=== PATIENT | male | born 1980 | race Caucasian/White ===

== ENCOUNTER 2018-05-22 11:33 | Emergency (ER) | payer BC, SELFPAY ==
[2018-05-22 11:50] VITALS: BP 144/80; PULSE 99; TEMP 39.3; O2SAT 97; BMI 37.5
[2018-05-22 12:20] LABS: Influenza A and B by PCR Rapid Negative (Negative)
--- NOTE | 2018-05-22 13:03 | DI.RAD.S_ITS ---
PROCEDURE: XR CHEST 2V INDICATIONS: cough/fever TECHNIQUE: 2 views of the chest were acquired. COMPARISON: None. FINDINGS: Surgical changes and devices: None. Lungs and pleura: An incomplete inspiratory result is noted, causing a crowded appearance to the lung markings. Mild, streaky opacities are seen at the lung bases. No pneumothorax or significant pleural effusions are seen. Mediastinum: Mediastinal contours are normal. Heart size is normal. Bones and chest wall: No suspicious bony abnormalities. Soft tissues appear unremarkable. IMPRESSION: Limited study demonstrating likely atelectasis is seen at the lung bases. Differential diagnosis includes mild infiltrate. As clinically appropriate, a short-term followup chest series (with PA and lateral views) performed in deep inspiration is suggested for further evaluation. Dictated by: Alejandro Mitchell M.D. on 05/22/2018 at 12:11 Approved by: Alejandro Mitchell M.D. on 05/22/2018 at 12:12
[2018-05-22 13:34] VITALS: BP 132/81; PULSE 96; RESP 16; TEMP 38.3; O2SAT 98
[2018-05-22] MEDS: IBUPROFEN 400 MG TABLET 800 MG PO (14:04)
--- NOTE | 2018-05-22 14:09 | ED.FEVER ---
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 He has had chills and sweats. He came here from [place] to visit a friend this weekend, and is now concerned that he could be developing pneumonia. He also has a history of mild asthma/ reactive airways for which he has needed an inhaler occasionally. He states that he has mild exercise intolerance but does not feel acutely short of breath. No wheezing. He denies sinus pain, sore throat, or earache. Not having body aches. He has not traveled other than domestic we and symptoms were present before hand. No specific exposures, however he states that he has had several episodes of pneumonia in the past for 5 years, and this feels very similar. He denies any chest pain. He denies any new pain or swelling in the extremities or other new complaints on systems review. He states that typically azithromycin is not effective for him and Augmentin or Levaquin have seemed to work best for him. Related Data Home Medications Medication Instructions Recorded Confirmed loratadine 1 tab PO QPM 05/22/18 05/22/18 montelukast 10 mg PO QPM 05/22/18 05/22/18 tramadol 50 mg PO BID PRN 05/22/18 05/22/18 Previous Rx's Medication Instructions Recorded albuterol sulfate 2 inhalation INHALATION Q4H PRN 05/22/18 #8.5 gram amoxicillin-pot clavulanate 2 tab PO BID 7 Days #28 tab 05/22/18 Review of Systems <MONA Felix Last Filed: 05/22/18 21:23> Review of Systems ROS Unobtainable: All systems reviewed & are unremarkable except as noted in HPI and below PFSH <MONA Felix Last Filed: 05/22/18 21:23> Medical History No pertinent family history (Chronic) Reactive airway disease (Chronic) Pneumonia (Resolved) Surgical History No pertinent past surgical history (Chronic) Social History Smoking Status: Never smoker Social History Smoking Status: Never smoker Exam <Lorri Bowles PA-C - Last Filed: 05/22/18 21:23> Initial Vital Signs Initial Vital Signs: Vital Signs Temperature 102.7 F H 05/22/18 11:50 Pulse Rate 99 H 05/22/18 11:50 Blood Pressure 144/80 H 05/22/18 11:50 Pulse Oximetry 97 05/22/18 11:50 <Natalie Coppola DO - Last Filed: 05/23/18 12:19> Initial Vital Signs Initial Vital Signs: Vital Signs Temperature 102.7 F H 05/22/18 11:50 Pulse Rate 99 H 05/22/18 11:50 Blood Pressure 144/80 H 05/22/18 11:50 Pulse Oximetry 97 05/22/18 11:50 Course <Lorri Bowles PA-C - Last Filed: 05/22/18 21:23> Orders Ordered: Discontinued Medications Ibuprofen (Advil) 800 mg PO NOW ONE Stop: 05/22/18 13:59 Last Admin: 05/22/18 14:04 Dose: 800 mg Vital Signs - 8 hr 05/22/18 13:34 Temperature 101 F H Pulse Rate 96 H Respiratory Rate 16 Blood Pressure [Right Arm] 132/81 Pulse Oximetry 98 <Natalie Coppola DO - Last Filed: 05/23/18 12:19> Orders Ordered: Discontinued Medications Ibuprofen (Advil) 800 mg PO NOW ONE Stop: 05/22/18 13:59 Last Admin: 05/22/18 14:04 Dose: 800 mg Vital Signs - 8 hr 05/22/18 13:34 Temperature 101 F H Pulse Rate 96 H Respiratory Rate 16 Blood Pressure [Right Arm] 132/81 Pulse Oximetry 98 MDM - Fever <Lorri Bowles PA-C - Last Filed: 05/22/18 21:23> Lab Data Lab Results 05/22/18 Range/Units 11:55 Influenza A & B (PCR) Negative (Negative) Imaging Data Chest x-ray: Radiologist's impression: Chart Viewer Diagnostics DATE TYPE STATUS AUTHOR Hx 05/22/18 13:03 StephenAlejandro Jonah Dixon 37, M0 1980 REG ER, ED.LOC - Main ED: R13 170.18cm 108.862kg BMI: 37.6kg/m? Fever Search Chart NF - Not included in interaction checking No Data to Display No Data to Display Today 13:34 Jonah Dixon 37 M 1980 [place] [address] XRay Report Signed Patient: Jonah Dixon CMR#: [id number] : 1980Acct:[id number] Age/Sex: 37 / MDate of Service: 05/22/18 Loc: ED Accession Number: [id number] Procedure: XR chest 2V Ordering Provider: Lorri oBwles P.A-C PROCEDURE: XR CHEST 2V INDICATIONS: cough/fever TECHNIQUE: 2 views of the chest were acquired. COMPARISON: None. FINDINGS: Surgical changes and devices: None. Lungs and pleura: An incomplete inspiratory result is noted, causing a crowded appearance to the lung markings. Mild, streaky opacities are seen at the lung bases. No pneumothorax or significant pleural effusions are seen. Mediastinum: Mediastinal contours are normal. Heart size is normal. Bones and chest wall: No suspicious bony abnormalities. Soft tissues appear unremarkable. IMPRESSION: Limited study demonstrating likely atelectasis is seen at the lung bases. Differential diagnosis includes mild infiltrate. As clinically appropriate, a short-term followup chest series (with PA and lateral views) performed in deep inspiration is suggested for further evaluation. Dictated by: Alejandro Mitchell M.D. on 05/22/2018 at 12:11 Approved by: Alejandro Mitchell M.D. on 05/22/2018 at 12:12 <Natalie Coppola DO - Last Filed: 05/23/18 12:19> Lab Data Lab Results 05/22/18 Range/Units 11:55 Influenza A & B (PCR) Negative (Negative) Discharge Plan Departure Patient Disposition: Home Clinical Impression: Pneumonia Qualifiers: Pneumonia type: due to unspecified organism Laterality: bilateral Lung location: lower lobe of lung Qualified Code(s): J18.1 - Lobar pneumonia, unspecified organism Discharge Date/Time: 05/22/18 14:34 Interventions: ED Discharge Assessment Last Done: 05/22/18 14:33 Instructions: DI for Pneumonia -- Adult Activity Restrictions/Additional Instructions: please continue your ibuprofen/acetaminophen as well as Mucinex DM. Use the albuterol inhaler I have prescribed as often as needed. Start the high-dose Augmentin as soon as you pick it up and continue this for the next few days until you follow up with your PCP (this is higher dose than standard and probably what you have taken in the past since it has worked well for your pneumonia). Please return here right away if you have any acutely worsening symptoms prior to returning home. Prescriptions: New amoxicillin-pot clavulanate 1,000-62.5 mg tablet extended release 12 hr 2 tab PO BID 7 Days Qty: 28 RF: 0 albuterol sulfate 90 mcg/actuation HFA aerosol inhaler 2 inhalation INHALATION Q4H PRN (Reason: pneumonia) Qty: 8.5 RF: 0 No Action tramadol 50 mg tablet 50 mg PO BID PRN (Reason: pain) RF: 0 montelukast 10 mg tablet 10 mg PO QPM RF: 0 loratadine 1 tab PO QPM RF: 0 Referrals: Shimon Sanchez [Other] <Natalie Coppola DO - Last Filed: 05/23/18 12:19> Cosign ED Attending Lauren Attestation: I was immediately available in the department for consultation. Documentation has been reviewed. I agree with assessment and plan.
--- NOTE | 2018-05-22 14:12 | ED_ITS ---
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 He has had chills and sweats . He came here from [place] to visit a friend this weekend, and is now concerned that he could be developing pneumonia. He also has a history of mild asthma/ reactive airways for which he has needed an inhaler occasionally. He states that he has mild exercise intolerance but does not feel acutely short of breath. No wheezing. He denies sinus pain, sore throat, or earache. Not having body aches. He has not traveled other than domestic we and symptoms were present before hand. No specific exposures, however he states that he has had several episodes of pneumonia in the past for 5 years, and this feels very similar. He denies any chest pain. He denies any new pain or swelling in the extremities or other new complaints on systems review. He states that typically azithromycin is not effective for him and Augmentin or Levaquin have seemed to work best for him. Related Data Home Medications Medication Instructions Recorded Confirmed loratadine 1 tab PO QPM 05/22/18 05/22/18 montelukast 10 mg PO QPM 05/22/18 05/22/18 tramadol 50 mg PO BID PRN 05/22/18 05/22/18 Previous Rx's Medication Instructions Recorded albuterol sulfate 2 inhalation INHALATION Q4H PRN 05/22/18 #8.5 gram amoxicillin-pot clavulanate 2 tab PO BID 7 Days #28 tab 05/22/18 Review of Systems <MONA Felix Last Filed: 05/22/18 21:23> Review of Systems ROS Unobtainable: All systems reviewed & are unremarkable except as noted in HPI and below PFSH <MONA Felix Last Filed: 05/22/18 21:23> Medical History No pertinent family history (Chronic) Reactive airway disease (Chronic) Pneumonia (Resolved) Surgical History No pertinent past surgical history (Chronic) Social History Smoking Status: Never smoker Social History Smoking Status: Never smoker Exam <Lorri Bowles PA-C - Last Filed: 05/22/18 21:23> Initial Vital Signs Initial Vital Signs: Vital Signs Temperature 102.7 F H 05/22/18 11:50 Pulse Rate 99 H 05/22/18 11:50 Blood Pressure 144/80 H 05/22/18 11:50 Pulse Oximetry 97 05/22/18 11:50 <Natalie Coppola DO - Last Filed: 05/23/18 12:19> Initial Vital Signs Initial Vital Signs: Vital Signs Temperature 102.7 F H 05/22/18 11:50 Pulse Rate 99 H 05/22/18 11:50 Blood Pressure 144/80 H 05/22/18 11:50 Pulse Oximetry 97 05/22/18 11:50 Course <Lorri Bowles PA-C - Last Filed: 05/22/18 21:23> Orders Ordered: Discontinued Medications Ibuprofen (Advil) 800 mg PO NOW ONE Stop: 05/22/18 13:59 Last Admin: 05/22/18 14:04 Dose: 800 mg Vital Signs - 8 hr 05/22/18 13:34 Temperature 101 F H Pulse Rate 96 H Respiratory Rate 16 Blood Pressure [Right Arm] 132/81 Pulse Oximetry 98 <Natalie Coppola DO - Last Filed: 05/23/18 12:19> Orders Ordered: Discontinued Medications Ibuprofen (Advil) 800 mg PO NOW ONE Stop: 05/22/18 13:59 Last Admin: 05/22/18 14:04 Dose: 800 mg Vital Signs - 8 hr 05/22/18 13:34 Temperature 101 F H Pulse Rate 96 H Respiratory Rate 16 Blood Pressure [Right Arm] 132/81 Pulse Oximetry 98 MDM - Fever <Lorri Bowles PA-C - Last Filed: 05/22/18 21:23> Lab Data Lab Results 05/22/18 Range/Units 11:55 Influenza A & B (PCR) Negative (Negative) Imaging Data Chest x-ray: Radiologist's impression: Chart Viewer Diagnostics DATE TYPE STATUS AUTHOR Hx 05/22/18 13:03 StephenAlejandro Jonah Dixon 37, M0 1980 REG ER, ED.LOC - Main ED: R13 170.18cm 108.862kg BMI: 37.6kg/m? Fever Search Chart NF - Not included in interaction checking No Data to Display No Data to Display Today 13:34 Jonah Dixon 37 M 1980 [place] [address] XRay Report Signed Patient: Jonah Dixon CMR#: [id number] : 1980Acct:[id number] Age/Sex: 37 / MDate of Service: 05/22/18 Loc: ED Accession Number: [id number] Procedure: XR chest 2V Ordering Provider: Lorri Bowles P.A-C PROCEDURE: XR CHEST 2V INDICATIONS: cough/fever TECHNIQUE: 2 views of the chest were acquired. COMPARISON: None. FINDINGS: Surgical changes and devices: None. Lungs and pleura: An incomplete inspiratory result is noted, causing a crowded appearance to the lung markings. Mild, streaky opacities are seen at the lung bases. No pneumothorax or significant pleural effusions are seen. Mediastinum: Mediastinal contours are normal. Heart size is normal. Bones and chest wall: No suspicious bony abnormalities. Soft tissues appear unremarkable. IMPRESSION: Limited study demonstrating likely atelectasis is seen at the lung bases. Differential diagnosis includes mild infiltrate. As clinically appropriate, a short-term followup chest series (with PA and lateral views) performed in deep inspiration is suggested for further evaluation. Dictated by: Alejandro Mitchell M.D. on 05/22/2018 at 12:11 Approved by: Alejandro Mitchell M.D. on 05/22/2018 at 12:12 <Natalie Coppola DO - Last Filed: 05/23/18 12:19> Lab Data Lab Results 05/22/18 Range/Units 11:55 Influenza A & B (PCR) Negative (Negative) Discharge Plan Departure Patient Disposition: Home Clinical Impression: Pneumonia Qualifiers: Pneumonia type: due to unspecified organism Laterality: bilateral Lung location: lower lobe of lung Qualified Code(s): J18.1 - Lobar pneumonia, unspecified organism Discharge Date/Time: 05/22/18 14:34 Interventions: ED Discharge Assessment Last Done: 05/22/18 14:33 Instructions: DI for Pneumonia -- Adult Activity Restrictions/Additional Instructions: please continue your ibuprofen/acetaminophen as well as Mucinex DM. Use the albuterol inhaler I have prescribed as often as needed. Start the high-dose Augmentin as soon as you pick it up and continue this for the next few days until you follow up with your PCP (this is higher dose than standard and probably what you have taken in the past since it has worked well for your pneumonia). Please return here right away if you have any acutely worsening symptoms prior to returning home. Prescriptions: New amoxicillin-pot clavulanate 1,000-62.5 mg tablet extended release 12 hr 2 tab PO BID 7 Days Qty: 28 RF: 0 albuterol sulfate 90 mcg/actuation HFA aerosol inhaler 2 inhalation INHALATION Q4H PRN (Reason: pneumonia) Qty: 8.5 RF: 0 No Action tramadol 50 mg tablet 50 mg PO BID PRN (Reason: pain) RF: 0 montelukast 10 mg tablet 10 mg PO QPM RF: 0 loratadine 1 tab PO QPM RF: 0 Referrals: Shimon Sanchez [Other] <Natalie Coppola DO - Last Filed: 05/23/18 12:19> Cosign ED Attending Lauren Attestation: I was immediately available in the department for consultation. Documentation has been reviewed. I agree with assessment and plan.
== END 2018-05-22 14:34 | disposition home or self-care (01) ==
PROVIDERS: Emergency Medicine; Emergency Provider Internal Medicine
DX: J18.1 Lobar pneumonia, unspecified organism (principal)
CPT/HCPCS: 71046; 87400; 99282; 99284